=== PATIENT | female | born 1950 | race Caucasian/White ===

== ENCOUNTER → 2017-04-29 | Outpatient (CLI) | payer BC ==
--- NOTE | 2017-04-29 15:50 | CT ---
EXAMINATION TYPE: CT chest w con DATE OF EXAM: 04/29/2017 COMPARISON: 03/29/2016 HISTORY: Pulmonary nodules. CT DLP: 835 mGycm. Automated Exposure Control for Dose Reduction was Utilized. TECHNIQUE: CT scan of the thorax is performed following with IV Contrast, patient injected with 80ml mL of Visipaque 320. FINDINGS: LUNGS: Stable pulmonary nodule versus area of distal atelectasis is seen within the right upper lobe anteriorly on series 4 image 29 measuring 4 mm. Within the right middle lobe there is a stable 8 mm p ulmonary nodule near the interlobar fissure. 9 mm right middle lobe pulmonary nodule adjacent 3 mm no dule are also stable on series 4 image 35. 6 mm left upper lobe pulmonary nodule on series 4 image 29 is also stable. Left upper lobe 5 mm pulmonary nodule on series 4 image 23 is stable. Nodules at the left lung base on series 4 image 46 and 47 are stable from the prior measuring 4 mm each. Lingular p ulmonary nodule on series 4 image 35 is retrospectively unchanged. Also retrospectively unchanged are 4 mm and 3 mm left lower lobe pulmonary nodules on series 4 image 29 and 31. 5 mm pulmonary nodule o n series 4 image 40 in the right lower lobe is also unchanged. No new pulmonary nodules are identifie d. These nodules appear unchanged dating back to exams of 2014 and 2016 and should be considered rodrigo gn. MEDIASTINUM: There are no greater than 1 cm hilar or mediastinal lymph nodes. No pericardial effusi on is seen. Mild to moderate three-vessel coronary calcifications are noted. OTHER: 3.8 cm left adrenal gland nodule is also stable back to 2015 and favored to be benign. Cholecy stectomy clips are noted within the gallbladder fossa. Stable hepatic cyst is noted in comparison to exam of 2015 within the right hepatic lobe measuring 1.2 cm. Mild degenerative changes of the thoraci c spine are noted. IMPRESSION: 1. Bilateral stable well circumscribed pulmonary nodules similar dating back to exams of 2015 and 16. The should be considered benign. 2. Stable 3.8 cm left adrenal gland nodule is unchanged back to 2015 and favored to be benign. This c ould represent a lipid poor adenoma.
== END | disposition home or self-care (01) ==
LOC: RADCTMAIN 14:38
PROVIDERS: ATTEND Internal Medicine
DX: R91.8 Other nonspecific abnormal finding of lung field (principal); Z88.2 Allergy status to sulfonamides; Z88.1 Allergy status to other antibiotic agents; Z88.8 Allergy status to other drugs, medicaments and biological substances
CPT/HCPCS: 82565; 84520; 71260; 36415; Q9967

== ENCOUNTER → 2018-05-21 | Outpatient (CLI) | payer BC ==
--- NOTE | 2018-05-21 16:36 | CT ---
EXAMINATION TYPE: CT chest wo con DATE OF EXAM: 05/21/2018 COMPARISON: Prior CT chest 04/29/2017 HISTORY: Follow up for multiple lung nodules. CT DLP: 562.6 mGycm. Automated Exposure Control for Dose Reduction was Utilized. TECHNIQUE: CT scan of the thorax is performed without IV contrast. FINDINGS: LUNGS: The lungs are stable, multiple bilateral pulmonary nodules are unchanged. No endobronchial les ion. There is no pleural effusion or pneumothorax seen. The tracheobronchial tree is patent. MEDIASTINUM: Lack of IV contrast is noted to limit evaluation for mediastinal and especially hilar ad enopathy. There are no definitive greater than 1 cm hilar or mediastinal lymph nodes. No cardiomega ly or pericardial effusion is seen. OTHER: Low dense left adrenal lesion measures approximately 4.5 cm in greatest dimension which may puentes ve grown 2 mm in the interval. Liver shows low attenuation likely due to hepatic steatosis. Patient i s post cholecystectomy. Liver may be enlarged. Peripheral low attenuation focus within the liver is s table. IMPRESSION: Stable benign exam of the lungs. Slight interval growth of patient's low dense left adren al mass.
== END | disposition home or self-care (01) ==
LOC: RADCTMAIN 15:46
PROVIDERS: ATTEND Family Medicine
DX: R91.8 Other nonspecific abnormal finding of lung field (principal); E27.9 Disorder of adrenal gland, unspecified
CPT/HCPCS: 71250

== ENCOUNTER → 2023-10-08 | Outpatient (CLI) | payer MEDICARE ==
--- NOTE | 2023-10-12 17:28 | MM ---
Reason for Exam: Screening (asymptomatic). Last screening mammogram was performed 12 month(s) ago. Patient History: Menarche at age 12. First Full-Term at age 25. Left ovary removed at age 55. Right ovary removed at age 55. Hysterectomy at age 55. Postmenopausal. Patient has history of breast feeding. Maternal aunt had breast cancer at or over age 50. Risk Values: Lety 5 year model risk: 2.0%. NCI Lifetime model risk: 4.8%. Prior Study Comparison: 09/26/2022 Bilateral Screening Mammogram, [facility]. Tissue Density: There are scattered areas of fibroglandular density. Findings: Analyzed By CAD. 2 microclips right breast and one microclip left breast from prior biopsies. Benign vascular, oil cyst, and secretory calcifications. Chronic bilateral nodularity. There is no suspicious group of microcalcifications or new suspicious mass in either breast. Overall Assessment: Benign, BI-RAD 2 Management: Screening Mammogram of both breasts in 1 year. . Patient should continue monthly self-breast exams. A clinical breast exam by your physician is recommended on an annual basis. This exam should not preclude additional follow-up of suspicious palpable abnormalities. Note on Lety scores and lifetime risk: 1. A Lety score greater than 3% is considered moderate risk. If this is the case, consider specialist referral to assess eligibility for a risk reducing agent. 2. If overall lifetime risk for the development of breast cancer is 20% or higher, the patient may qualify for future screening with alternating mammogram and breast MRI. Electronically signed and approved by: Gary Rubio M.D. Radiologist
== END | disposition home or self-care (01) ==
LOC: RADMAMWWP 13:19
PROVIDERS: ATTEND Surgery
DX: Z12.31 Encounter for screening mammogram for malignant neoplasm of breast (principal); Z78.0 Asymptomatic menopausal state; Z80.3 Family history of malignant neoplasm of breast
CPT/HCPCS: 77063; 77067

== ENCOUNTER → 2023-10-30 | Outpatient (CLI) | payer MEDICARE ==
[2023-10-30 14:16] VITALS: BP 166/85; PULSE 89; RESP 16; TEMP 97.9
--- NOTE | 2023-10-30 14:19 | P.PN ---
Subjective Progress Note Date: 10/30/23 Principal diagnosis: breast pain 10-30-23 Chief Complaint: breast pain Raven is a 73-year-old white female seen in consultation for Dr. Gilmore on 01-09-23 regarding breast pain and soreness in both breast. She underwent a bilateral screening mammogram on which was benign BIRAD 2. The pain was about two months old at the time. When whe was seen it was only occasional. At this time she is not complaining of any breast pain. She had a right breast lumpectomy in 2019 for benign disease. She has had multiple needle aspirations in the past. She had a stero biopsy in her left breast in the remote past which was benign. She is not complaining of any new lumps masses or nodules of concern in either breast. She has not had any recent trauma or infection in the breast. Most recent mammogram 10-08-23 BIRAD 2. Caffeine: occasional nicotine: none chocolate: daily BCP: 10 years hormones: none Family History: materanl aunt: breast cancer father: lung cancer Hormonal History: menarche: 13 , breast fed: yes, age at : 25 menopause: 55 Surgical History: tonsil right breast biopsy gallbladder left knee replacement SAW/BSO precancer pap smear Medical History: daibetes HTN uses a walker herniated disc Social History: nicotine: none alcohol: none drugs: none - Constitutional Constitutional: Denies chills, Denies fever - EENT Eyes: denies blurred vision, denies pain Ears: deny: decreased hearing, tinnitus Ears, nose, mouth and throat: Denies headache, Denies sore throat - Breasts Breasts: bilateral: as per HPI - Cardiovascular Cardiovascular: Denies chest pain, Denies shortness of breath - Respiratory Respiratory: Denies cough - Gastrointestinal Comment: PUD Gastrointestinal: Denies abdominal pain, Denies diarrhea, Denies nausea, Denies vomiting - Genitourinary (Female) Comment: UTI now Genitourinary: Denies dysuria, Denies hematuria - Menstruation Menstruation: Reports post hysterectomy - Musculoskeletal Musculoskeletal: Reports as per HPI - Integumentary Integumentary: Denies pruritus, Denies rash - Neurological Comment: 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, numbness left hand, bilateral mild carpel tunnel - Psychiatric Psychiatric: Denies anxiety, Denies depression - Endocrine Endocrine: Reports as per HPI, Reports fatigue - Hematologic/Lymphatic Comment: none - Allergic/Immunologic Allergic/Immunologic: Reports seasonal allergies Medications and Allergies Home Medications Medication Instructions Recorded Confirmed Type Cholecalciferol [Vitamin D3] 5,000 unit PO DAILY 10/23/15 01/09/23 History Losartan/Hydrochlorothiazide 1 each PO DAILY 10/23/15 01/09/23 History [Losartan-Hctz 100-25 mg Tab] Nebivolol HCl [Bystolic] 10 mg PO DAILY 10/23/15 01/09/23 History Pravastatin Sodium [Pravachol] 10 mg PO DAILY 10/23/15 01/09/23 History Pyridoxine [Vitamin B-6] 250 mg PO DAILY 10/23/15 01/09/23 History amLODIPine [Norvasc] 2.5 mg PO DAILY 10/23/15 01/09/23 History Allergies Allergy/AdvReac Type Severity Reaction Status Date / Time prochlorperazine Allergy Unknown Verified 01/09/23 11:06 [From Compazine] prochlorperazine edisylate Allergy Unknown Verified 01/09/23 11:06 [From Compazine] prochlorperazine maleate Allergy Unknown Verified 01/09/23 11:06 [From Compazine] rofecoxib [From Vioxx] Allergy Chest Pain Verified 01/09/23 11:06 Sulfa (Sulfonamide Allergy Rash/Hives Verified 01/09/23 11:06 Antibiotics) terfenadine [From Seldane] AdvReac Rapid Verified 01/09/23 11:06 Heart Rate Objective - Constitutional General appearance: Present: cooperative - EENT Eyes: Present: EOMI ENT: Present: hearing grossly normal - Neck Neck: Present: normal ROM - Respiratory Respiratory: bilateral: CTA - Cardiovascular Heart sounds: normal: S1, S2 - Integumentary Integumentary: Present: normal turgor - Musculoskeletal Musculoskeletal: Present: gait normal - Psychiatric Psychiatric: Present: A&O x's 3, appropriate affect, intact judgment & insight - Additional findings Additional findings: Breast Exam: BRA: 40C Inspection: Bilateral grade 3 ptosis Palpation: Right breast: Multi positional exam fibrocystic changes no dominant masses or nodules of concern, well-healed scar from prior biopsy Right axilla: No adenopathy of concern Left breast: Multi-positional exam fibrocystic changes no dominant masses or nodules of concern Left axilla: No adenopathy of concern Assessment and Plan Assessment: Impression: Fibrocystic breast changes Breast pain seems to have stopped at this time uncertain as to the etiology believe it is fibrocystic in nature Fungal infection under both breasts resolved Plan: Nystatin as needed Repeat bilateral mammogram in September 2024 with examination at that time Patient was given book on Solving the Mystery of Breast Pain on her last visit Patient will follow up sooner if any questions or concerns CC: Dr. Gilmore
== END ==
LOC: WWCWWP 13:59
PROVIDERS: ATTEND Surgery
DX: N64.4 Mastodynia (principal); N60.12 Diffuse cystic mastopathy of left breast; N60.11 Diffuse cystic mastopathy of right breast; Z80.3 Family history of malignant neoplasm of breast; Z88.2 Allergy status to sulfonamides; Z88.8 Allergy status to other drugs, medicaments and biological substances

== ENCOUNTER → 2024-07-23 | Outpatient (CLI) | payer MEDICARE ==
[2024-07-23 15:46] LABS: LDL Cholesterol,Calculated 92.1 mg/dL (0.0-131.0)
== END | disposition home or self-care (01) ==
LOC: LABWHC1 08:41
PROVIDERS: ATTEND Internal Medicine
DX: E11.65 Type 2 diabetes mellitus with hyperglycemia (principal); D35.02 Benign neoplasm of left adrenal gland
CPT/HCPCS: 36415; 80061; 82024; 82533; 82626; 83036

== ENCOUNTER → 2024-10-11 | Outpatient (CLI) | payer MEDICARE ==
--- NOTE | 2024-10-11 17:09 | MM ---
Reason for Exam: Screening (asymptomatic). Last screening mammogram was performed 12 month(s) ago. Patient History: Menarche at age 12. First Full-Term at age 25. Left ovary removed at age 55. Right ovary removed at age 55. Hysterectomy at age 55. Postmenopausal. Patient has history of breast feeding. Maternal aunt had breast cancer, age 70. Risk Values: Lety 5 year model risk: 2.0%. NCI Lifetime model risk: 4.5%. Prior Study Comparison: 09/26/2022 Bilateral Screening Mammogram, [facility]. 10/08/2023 Bilateral MG 3D screening mammo w/cad, [facility]. Tissue Density: The breasts are heterogeneously dense, which may obscure small masses. Findings: Analyzed By CAD. 2 microclips on either side related to prior biopsy. Benign bilateral secretory and vascular calcifications. Heterogeneous calcifications posterior upper outer quadrant right breast are increasing. Further magnification views are recommended. Chronic nodularity on both sides. Otherwise, no significant change. Overall Assessment: Incomplete: need additional imaging evaluation, BI-RAD 0 Management: Special View Mammogram of the right breast. [facility] will attempt to contact patient to return for supplemental views. [facility], , 10/11/2024 5:06 PM. Electronically signed and approved by: Gary Rubio M.D. Radiologist
== END | disposition home or self-care (01) ==
LOC: RADMAMWWP 10:01
PROVIDERS: ATTEND Surgery
DX: Z12.31 Encounter for screening mammogram for malignant neoplasm of breast (principal); R92.333 Mammographic heterogeneous density, bilateral breasts; Z78.0 Asymptomatic menopausal state; Z80.3 Family history of malignant neoplasm of breast
CPT/HCPCS: 77063; 77067

== ENCOUNTER → 2024-10-13 | Outpatient (CLI) | payer MEDICARE ==
--- NOTE | 2024-10-13 13:34 | MM ---
Reason for Exam: Additional evaluation requested from abnormal screening. Last screening mammogram was performed less than 1 month ago. Patient History: Menarche at age 12. First Full-Term at age 25. Left ovary removed at age 55. Right ovary removed at age 55. Hysterectomy at age 55. Postmenopausal. Patient has history of breast feeding. Maternal aunt had breast cancer, age 70. Risk Values: Lety 5 year model risk: 2.0%. NCI Lifetime model risk: 4.5%. Tissue Density: Right: The breasts are heterogeneously dense, which may obscure small masses. Findings: Analyzed By CAD. The questioned calcifications in the posterior upper outer quadrant have a grouped, heterogeneous morphology and are noted to be gradually increasing. Tissue sampling recommended. Overall Assessment: Suspicious, BI-RAD 4 Management: Stereotactic Core Biopsy of the right breast. [facility], , 10/13/2024 12:49 PM. Electronically signed and approved by: Gary Rubio M.D. Radiologist
== END | disposition home or self-care (01) ==
LOC: RADMAMWWP 10:58
PROVIDERS: ATTEND Surgery
DX: R92.8 Other abnormal and inconclusive findings on diagnostic imaging of breast (principal); R92.331 Mammographic heterogeneous density, right breast; Z78.0 Asymptomatic menopausal state; Z80.3 Family history of malignant neoplasm of breast
CPT/HCPCS: 77065; G0279; 77061

== ENCOUNTER → 2024-11-05 | Outpatient (CLI) | payer MEDICARE ==
--- NOTE | 2024-11-05 08:22 | P.PN ---
Subjective Progress Note Date: 11/05/24 Principal diagnosis: Abnormal right breast mammogram abnormal right breast mammogram Raven is a 74-year-old white female seen in consultation for Dr. Gilmore on 01-09-23 regarding breast pain, this has resolved. She underwent a bilateral screening mammogram on which was benign BIRAD 2. The pain was about two months old at the time. When she was seen it was only occasional. At the time she was seen she was not complaining of any breast pain. She had a right breast lumpectomy in 2019 for benign disease. She has had multiple needle aspirations in the past. She had a stero biopsy in her left breast in the remote past which was benign. She is not complaining of any new lumps masses or nodules of concern in either breast. She has not had any recent trauma or infection in the breast. Most recent mammogram 10-11-24; considered BI-RADS 0, additional views of the right breast recommended stereo biopsy of an area of calcification in the upper outer quadrant region of the right breast. Caffeine: occasional nicotine: none chocolate: daily BCP: 10 years hormones: none Family History: materanl aunt: breast cancer father: lung cancer Hormonal History: menarche: 13 , breast fed: yes, age at : 25 menopause: 55 Surgical History: tonsil right breast biopsy gallbladder left knee replacement SAW/BSO precancer pap smear tooth extracted 3 months ago Medical History: daibetes HTN uses a walker herniated disc cushings disease Social History: nicotine: none alcohol: none drugs: none - Constitutional Constitutional: Denies chills, Denies fever - EENT Eyes: denies blurred vision, denies pain Ears: deny: decreased hearing, tinnitus Ears, nose, mouth and throat: Denies headache, Denies sore throat - Breasts Breasts: bilateral: as per HPI - Cardiovascular Cardiovascular: Denies chest pain, Denies shortness of breath - Respiratory Respiratory: Denies cough - Gastrointestinal Comment: PUD Gastrointestinal: Denies abdominal pain, Denies diarrhea, Denies nausea, Denies vomiting - Genitourinary (Female) Comment: UTI now Genitourinary: Denies dysuria, Denies hematuria - Menstruation Menstruation: Reports post hysterectomy - Musculoskeletal Musculoskeletal: Reports as per HPI - Integumentary Integumentary: Denies pruritus, Denies rash - Neurological Comment: 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, numbness left hand, bilateral mild carpel tunnel - Psychiatric Psychiatric: Denies anxiety, Denies depression - Endocrine Endocrine: Reports as per HPI, Reports fatigue - Hematologic/Lymphatic Comment: none - Allergic/Immunologic Allergic/Immunologic: Reports seasonal allergies Medications and Allergies Home Medications Medication Instructions Recorded Confirmed Type Cholecalciferol [Vitamin D3] 5,000 unit PO DAILY 10/23/15 01/09/23 History Losartan/Hydrochlorothiazide 1 each PO DAILY 10/23/15 01/09/23 History [Losartan-Hctz 100-25 mg Tab] Nebivolol HCl [Bystolic] 10 mg PO DAILY 10/23/15 01/09/23 History Pravastatin Sodium [Pravachol] 10 mg PO DAILY 10/23/15 01/09/23 History Pyridoxine [Vitamin B-6] 250 mg PO DAILY 10/23/15 01/09/23 History amLODIPine [Norvasc] 2.5 mg PO DAILY 10/23/15 01/09/23 History Allergies Allergy/AdvReac Type Severity Reaction Status Date / Time prochlorperazine Allergy Unknown Verified 01/09/23 11:06 [From Compazine] prochlorperazine edisylate Allergy Unknown Verified 01/09/23 11:06 [From Compazine] prochlorperazine maleate Allergy Unknown Verified 01/09/23 11:06 [From Compazine] rofecoxib [From Vioxx] Allergy Chest Pain Verified 01/09/23 11:06 Sulfa (Sulfonamide Allergy Rash/Hives Verified 01/09/23 11:06 Antibiotics) terfenadine [From Seldane] AdvReac Rapid Verified 01/09/23 11:06 Heart Rate Objective - Constitutional General appearance: Present: cooperative - EENT Eyes: Present: EOMI ENT: Present: hearing grossly normal - Neck Neck: Present: normal ROM - Respiratory Respiratory: bilateral: CTA - Cardiovascular Rhythm: regular Heart sounds: normal: S1, S2 - Integumentary Integumentary: Present: normal turgor - Musculoskeletal Musculoskeletal Comment(s): Uses a walker - Psychiatric Psychiatric: Present: A&O x's 3, appropriate affect, intact judgment & insight - Additional findings Additional findings: Breast Exam: BRA: 40C Inspection: Bilateral grade 3 ptosis; bilateral nipple inversion, patient states this is chronic Palpation: Right breast: Multi positional exam fibrocystic changes no dominant masses or nodules of concern, well-healed scar from prior biopsy Right axilla: No adenopathy of concern Left breast: Multi-positional exam fibrocystic changes no dominant masses or nodules of concern Left axilla: No adenopathy of concern Fungal infection under both breast Assessment and Plan Assessment: Impression: Fibrocystic breast changes Breast pain seems to have stopped at this time uncertain as to the etiology believe it is fibrocystic in nature Bilateral mammogram 6 30 25 BI-RADS 0 additional views of right breast recommended, and additional views of right breast right breast stereo biopsy recommended upper outer quadrant Fungal infection under both breast Plan: Stereotactic core biopsy right breast nystatin under breast Consent: I have discussed the risks, benefits and alternative therapies for the above-mentioned procedure and for both sedation/analgesia as well as necessary blood product administration, if indicated, as they pertain to this patient. The patient has indicated understanding and acceptance of the risks and procedures discussed. CC: Dr. Gilmore
[2024-11-05 08:25] VITALS: BP 133/80; PULSE 96; RESP 16; TEMP 97.8
== END ==
LOC: WWCWWP 07:09
PROVIDERS: ATTEND Surgery
DX: N60.19 Diffuse cystic mastopathy of unspecified breast (principal); N64.4 Mastodynia; Z91.048 Other nonmedicinal substance allergy status; Z91.018 Allergy to other foods; Z88.2 Allergy status to sulfonamides; Z88.8 Allergy status to other drugs, medicaments and biological substances; Z88.1 Allergy status to other antibiotic agents

== ENCOUNTER → 2024-11-05 | Day surgery (SDC) | payer MEDICARE ==
[~2024-11-05] MED LIST: ALPRAZolam 0.25 MG TAB PO PRN
[2024-11-05 07:31] VITALS: RESP 16
[2024-11-05 09:36] VITALS: BP 134/76; PULSE 92; TEMP 98.3
--- NOTE | 2024-11-15 14:16 | MM ---
Risk Values: Lety 5 year model risk: 2.0%. NCI Lifetime model risk: 4.5%. Prior Study Comparison: 10/08/2023 Bilateral MG 3D screening mammo w/cad, [facility]. 10/11/2024 Bilateral MG 3D screening mammo w/cad, [facility]. 10/13/2024 Right MG 3D work up w/cad RT, [facility]. Pathology Description: Marker Left Behind. Specimen Radiograph. Calcium Found: Yes Approach: Lateral to Medial Needle Type: Eviva Cores: 12 Skin Nicks: 2 Gauge: 9 The correct site was marked. A time out was performed. Following informed consent the patient was brought to the stereotactic core biopsy room. A geological scout film was obtained via an lateral approach to identify the lesion in the right breast. The lesion is located at the upper outer quadrant position. The lesion was then targeted. The breast was prepped using Chlorhexidine. 20 cc of 1% lidocaine were used to anesthetize the area of concern. A 9 gauge vacuum-assisted core rotating biopsy needle was driven to the correct coordinates. A prefire film was obtained, the needle was driven to the correct coordinates the needle was not noted to be in the correct location.. The lesion was retargeted, the needle was again driven to the new location. A repeat prefire film revealed the needle to be in the correct location. The needle was fired. A post fire film was obtained. The needle was noted to be in the correct location. 12 core biopsies were obtained. A specimen radiograph was done. The specimen radiograph revealed microcalcifications of concern. The needle was removed leaving the sheath in place. A secure zach top hat clip was inserted into the biopsy cavity through the sheath. Pressure was applied at the biopsy site for hemostasis. Steri-Strips were applied to the access site. The specimens were sent to the laboratory for pathologic analysis. The patient tolerated the procedure in stable condition and will follow-up with Dr. Domingo. She was discharged in good condition with verbal and written instructions. Post procedure mammogram shows the clip appears to have migrated laterally to the area of calcifications. Calcifications were not completely removed and should excision be required localization of the calcifications would be recommended rather than localization of the clip. [facility], , 11/05/2024 10:02 AM. Pathology Results: Result: Benign. Pathology and radiology were reviewed. Findings are concordant. RIGHT BREAST, STEREOTACTIC CORE BIOPSY: Benign breast tissue with proliferative fibrocystic change having columnar cell change, focal fibroadenomatoid hyperplasia, microcalcification and florid usual ductal hyperplasia. Benign intramammary lymph node present. Overall Assessment: Benign Management: Diagnostic Mammogram of the right breast in 6 months. Electronically signed and approved by: Hilary Muñoz M.D.
== END ==
LOC: RADMAMWWP 07:11
PROVIDERS: ATTEND Surgery
DX: N62 Hypertrophy of breast (principal); R92.8 Other abnormal and inconclusive findings on diagnostic imaging of breast
CPT/HCPCS: 88305; 19081; A4648; J2003